=== PATIENT | male | born 1955 | race Caucasian/White ===

== ENCOUNTER 2019-03-08 12:28 | Emergency (ER) | payer BC ==
[~2019-03-08] VITALS: Ht 185.4 cm; Wt 108.9 kg
[2019-03-08 13:02] VITALS: BP_SYST 136
--- NOTE | 2019-03-08 13:05 | NUR ---
Placed in room 4 . Placed on cardiac monitor technician, blood pressure machine and pulse oximeter. To gown for exam. Side rails up. Assumed care.
--- NOTE | 2019-03-08 13:30 | NUR ---
ER at bedside examining patient.
--- NOTE | 2019-03-08 13:30 | NUR ---
Patient arrived via POV, AAOx4, and ambulatory. Patients at bedside. Patients c/c of bilateral lower forearm weakness, temporary, resolved after several minutes then reoccurred x3 over 2 hour time period. Patient has no unilateral weakness noted, facial symmetry noted. Patient able to speak in full sentences no slurring noted. MD at bedside for examination. Patient stood upright at bedside placing hands out in front of body and attempted to stand on one foot, patient unable to stand on one foot, left or right for longer than 2 seconds. Patient able to catch self, no fall noted, or near fall. Patient calm and cooperative. Will continue to follow up and monitor.
[2019-03-08] MEDS ORDERED: NACL 0.9% 1,000 ML IV ONE (13:31)
[2019-03-08 13:50] LABS: BASOPHILS % (AUTO) 0.6 % (0.0-2.0); BILIRUBIN,URINE NEGATIVE (NEGATIVE); BLOOD, URINE NEGATIVE (NEGATIVE); CLARITY/URINE CLEAR (CLEAR); COLOR,URINE YELLOW (YELLOW); EOSINOPHILS # (AUTO) 0.1 K/uL (0.0-0.4); EOSINOPHILS % (AUTO) 1.4 % (0.0-4.0); GLUCOSE,URINE NEGATIVE (NEGATIVE); HEMATOCRIT 48.8 % (36-54); HEMOGLOBIN 16.7 g/dL (14.0-18.0); KETONES,URINE NEGATIVE (NEGATIVE); LEUKOCYTE ESTERASE ,URINE NEGATIVE (NEGATIVE); LYMPHOCYTES # (AUTO) 2.1 K/uL (1.0-5.5); LYMPHOCYTES % (AUTO) 27.9 % (20.5-51.5); MEAN CORPUSCULAR HEMOGLOBIN 31 pg (27-31); MEAN CORPUSCULAR HGB CONC 34 % (32-36); MEAN CORPUSCULAR VOLUME 92 fL (79.0-98.0); MONOCYTES # (AUTO) 0.7 K/uL (0.0-1.0); MONOCYTES % (AUTO) 8.8 % (1.7-9.3); NEUTROPHILS # (AUTO) 4.6 K/uL (1.8-7.7); NEUTROPHILS % (AUTO) 61.3 % (40.0-70.0); NITRITE, URINE NEGATIVE (NEGATIVE); PH,URINE 5.5 (5.0-8.0); PLATELET COUNT (AUTO) 177 K/uL (130-430); PROTEIN URINE NEGATIVE (NEGATIVE); RED BLOOD CELL COUNT(AUTO) 5.33 MIL/uL (4.2-6.2); RED CELL DISTRIBUTION WIDTH 13.6 % (9.0-15.0); UROBILINOGEN,URINE 0.2 (0.2-1.0); WHITE BLOOD COUNT (AUTO) 7.6 K/uL (4.8-10.8)
[2019-03-08 14:04] LABS: ANION GAP 6 (5-15); CALCIUM 9.9 mg/dL (8.4-11.0); CHLORIDE 101 mmol/L (98-107); CREATININE 0.99 mg/dL (0.55-1.30); GFR AFRICAN AMERICAN 99 mL/min (>90); GLUCOSE 87 mg/dL (70-99); POTASSIUM 4.1 mmol/L (3.5-5.1); SODIUM SERUM 132 mmol/L (136-145); UREA NITROGEN, BLOOD 21 mg/dL (8-21)
[2019-03-08 14:08] LABS: ALANINE AMINOTRANSFERASE 36 U/L (12-78); AMYLASE 38 U/L (0-100); ASPARTATE AMINOTRANSFERASE 17 U/L (10-37); CHOLESTEROL 191 mg/dL (<200); HDL CHOLESTEROL 56 mg/dL (>45); LDL CHOLESTEROL 111 mg/dL (<100); LIPASE 95 U/L (73-393); TOTAL BILIRUBIN 0.6 mg/dL (0.0-1.0); TRIGLYCERIDES 198 mg/dL (30-150)
[2019-03-08 14:14] LABS: PROTHROMBIN TIME 9.7 SECS (9.5-12.5)
--- NOTE | 2019-03-08 14:56 | NUR ---
Spoke with [facility] regarding possible transfer. Given information regarding call to neurologist Dr. Thomson [phone].
--- NOTE | 2019-03-08 14:58 | NUR ---
to call Dr. Salinas neurologist at [facility].
--- NOTE | 2019-03-08 15:35 | NUR ---
Patient resting comfortably, needs are met at this time. Patients at bedside.
--- NOTE | 2019-03-08 16:10 | NUR ---
Informed patient transfer is in [address] scan to receive CTA as recommended by .
[2019-03-08] MEDS ORDERED: IOHEXOL 100 ML IV ONE (16:17)
--- NOTE | 2019-03-08 16:32 | NUR ---
EMS crew has arrived. Report called [facility] Ruiz. Aware of EMS here for transfer.
[2019-03-08 16:33] VITALS: BP_SYST 144
--- NOTE | 2019-03-08 16:35 | NUR ---
Patient to be transferred to [facility]. Is being transferred due to higher level of care. Receiving facility has accepting physician and available space. ER physician has signed transfer form. Patient or responsible libertarian has agreed to transfer and signed form. Patient belongings inventoried and will be sent with patient. Copy of nursing notes, lab reports, EKG, Physicians Orders and X-rays to be sent with patient. Report called to MERCEDEZ Ruiz at receiving facility. Receiving physician is Dr. Avila. [facility] ambulance service has been called for transfer. Arrived now, and patient ready for transfer.
== END 2019-03-08 16:35 | disposition short-term general hospital (02) ==
LOC: SED 12:28
DX: G83.9 Paralytic syndrome, unspecified (principal)
CPT/HCPCS: 36415; 70450; 70496; 70498; 71045; 80053; 80061; 81003; 82150; 82550; 83605; 83690; 84484; 85025; 85610; 85730; 87040; 93005; 99285; J7030; Q9967